=== PATIENT | female | born 1975 ===

== ENCOUNTER 2025-04-07 05:34 | Day surgery (SDC) | payer OTHER ==
[2025-03-31 14:39] VITALS: BP 109/73
[2025-03-31 15:56] LABS: INR 1.0
[~2025-04-07] VITALS: Ht 167.6 cm; Wt 81.6 kg
[2025-04-07] MEDS ORDERED: CEFOXITIN SODIUM 2,000 MG VIAL IV ONE (06:53)
[2025-04-07] MEDS ORDERED: LIDOCAINE HCL 1%/EPINEPHRINE 20ML VIAL IJ ONE (08:09)
[2025-04-07] MEDS ORDERED: BUPIVACAINE HCL/MPF 0.5% 30ML VIAL ONE (08:09)
[2025-04-07] MEDS ORDERED: SUGAMMADEX SODIUM 200 MG/2 ML VIAL IV ONE (09:16)
[2025-04-07] MEDS ORDERED: TRAM1TAB98 PO (10:20)
[2025-04-07] MEDS ORDERED: PROTONIX40 MG PO (10:20)
[2025-04-07] MEDS ORDERED: NEURONTIN300 MG PO (10:20)
[2025-04-07] MEDS ORDERED: CELECOXIB200 MG PO (10:20)
== END 2025-04-07 12:30 | disposition home or self-care (01) ==
LOC: CIR.AMB 05:34
PROVIDERS: ATTEND Surgery
DX: K81.1 Chronic cholecystitis (principal)